=== PATIENT | male | born 1970 | race Two or more races ===

== ENCOUNTER 2017-10-19 09:51 | Emergency (ER) | payer SELFPAY ==
[~2017-10-19] VITALS: Ht 177.8 cm; Wt 99.8 kg
[~2017-10-19 09:51] MED LIST: PROAIR IN
[2017-10-19 10:01] VITALS: BP 134/79
[2017-10-19] MEDS ORDERED: cefTRIAXone SOD 1,000 MG VL IM ONE (11:00)
[2017-10-19] MEDS ORDERED: methylPREDNISolone SOD SUCC 125 MG/2 ML VL IM ONE (11:00)
[2017-10-19] MEDS ORDERED: IPRATROPIUM BROM 0.5 MG/2.5ML INH SOL NEB ONE (11:00)
[2017-10-19] MEDS ORDERED: ALBUTEROL SULF 2.5 MG/0.5ML(0.5%) NEB SOLN NEB ONE (11:00)
== END 2017-10-19 11:40 | disposition home or self-care (01) ==
LOC: ER 09:51
DX: J44.9 Chronic obstructive pulmonary disease, unspecified (principal); J03.90 Acute tonsillitis, unspecified
CPT/HCPCS: 71046; 94640; 96372; 99284; J0696; J2930